=== PATIENT | male | born 1985 | race Hispanic/Latino ===

== ENCOUNTER 2016-09-30 22:01 | Emergency (ER) | payer OTHER ==
[~2016-09-30] VITALS: Ht 177.8 cm; Wt 77.3 kg
[2016-09-30 22:32] VITALS: BP 116/70; PULSE 104; RESP 16; O2SAT 93
--- NOTE | 2016-09-30 22:54 | ED.REPORT ---
HPI-Bite: Human/Animal Date of Service Sep 30, 2016 ED Provider: Montana Zaman MD A 31 year old male with no pertinent medical history is brought to the ED by police due to a dog bite and fit for long term. The pt was running from [place] when he was bitten in the right leg and calf by their dog. The pt states that he is experiencing throbbing pain in the area, but denies numbness or tingling. Nursing Notes Stated Complaint: FIT FOR DETENTION Chief Complaint: General Complaint Nursing Notes Reviewed: Yes ([employer], meds not reconciled) Allergies: Coded Allergies: No Known Allergies (Unverified , 09/30/16) General Time Seen by MD: 22:52 Chief Complaint Dog bite Hx Obtained From: Patient, Police Arrived By: Police Onset Occurred: 1 - 4 hours ago Symptom Duration: Since onset Recent Healthcare: No recent hospitalization, Recent doctor visit Similar Sx Previous: No Past Medical History Past Medical History none reported Past Surgical History none reported Smoking History Current Every Day Smoker Ambulatory Status Independent Review of Systems Review of Systems Note: denies numbness or tingling Skin: Denies Rash Complete sys rev & neg: except as marked. Respiratory: Denies: Non-productive cough, Shortness of breath Cardiovascular: Denies: Chest pain GI: Denies: Abdominal pain Musculoskeletal: Reports: Extremity pain (right leg) Physical Exam Vital Signs Vital Signs (First) Date Time Temp Pulse Resp B/P Pulse Ox O2 Delivery O2 Flow Rate FiO2 09/30/16 22:32 37.4 104 16 116/70 93 Room Air Initial VS: Reviewed, Vital signs normal (HR 104) General/Constitutional: Awake, Alert Skin: Color NL, Warm, Dry 5 cm laceration on right anterior [place] two 4 cm lacerations on right posterior calf abrasions on the elbows multiple small splinters in right hand Head / Eyes: Atraumatic, Normocephalic, PERRL, EOMI Respiratory / Chest: Atraumatic, Breath sounds NL, Breath sounds = bilat, No respiratory distress Cardiovascular: Heart rate NL, Regular rhythm, Heart sounds NL Abdomen: Atraumatic, Soft, Non-tender Upper Extremity / MS: Full range of motion, Neurologic intact, Vascular intact Lower Extremity / Pelvis / MS: Full range of motion, Neurologic intact, Vascular intact Neurologic: Oriented X3, Speech NL, No motor deficits, No sensory deficits ENT: Atraumatic, Airway patent, Mucous membranes moist Neck: Atraumatic, Supple, Full range of motion Back: Atraumatic, Full range of motion Psychiatric: Affect NL, Mood NL Interpretation & Diagnostics Interpretation & Diagnostics: Right Tibia/Fibula X-Ray: no acute findings Procedures Procedure Notes: foreign body removal: 23:08 ED physician time-out performed, hand hygeine observed, sterile stand technique, consent provided from patient multiple small splinters removed from right hand pt tolerated well, condition improved, no complications Laceration Management Time: 23:08 Procedure Performed by: ED physician Consent / Setup / Site Prep: Informed consent provided, Consent from patient , Time-out performed, Hand hygiene observed, Stand sterile technique Location of Wound: right anterior pen[place] Wound Length: 5 cm Local Anesthesia: Lidocaine w epi 1% Digital Block: No Wound Preparation: Normal saline, Other (Wound cleanser) Debridement: None Irrigation: Copious Foreign Body Explore / Removal: Explored for foreign body Repair Skin: ___ O (5), Nylon Suture Technique: Running Post-Procedure / Complications: Antibiotic oint applied, Dressing applied, No complications, Condition improved, Tolerated procedure well, Patient stable Time: 23:08 Procedure Performed by: ED physician Consent / Setup / Site Prep: Informed consent provided, Consent from patient , Time-out performed, Hand hygiene observed, Stand sterile technique Location of Wound: right posterior calf Wound Length: 4 cm Local Anesthesia: Lidocaine w epi 1% Digital Block: No Wound Preparation: Normal saline, Other (Wound cleanser) Debridement: None Irrigation: Copious Foreign Body Explore / Removal: Explored for foreign body Repair Skin: ___ O (5), Nylon Suture Technique: Running Post-Procedure / Complications: Antibiotic oint applied, Dressing applied, No complications, Condition improved, Tolerated procedure well, Patient stable Time: 23:08 Procedure Performed by: ED physician Consent / Setup / Site Prep: Informed consent provided, Consent from patient , Time-out performed, Hand hygiene observed, Stand sterile technique Location of Wound: right posterior calf Wound Length: 4 cm Local Anesthesia: Lidocaine w epi 1% Digital Block: No Wound Preparation: Normal saline, Other (Wound cleanser) Debridement: None Irrigation: Copious Foreign Body Explore / Removal: Explored for foreign body Repair Skin: ___ O (5), Nylon Suture Technique: Running Post-Procedure / Complications: Antibiotic oint applied, Dressing applied, No complications, Condition improved, Tolerated procedure well, Patient stable Re-Eval/Medical Decision Med Decision/Clinical Course This is a healthy 31-year-old male brought by police is a fit for long term with a dog bite to the right leg. Patient receives up-to-date in tetanus, denies any other injuries. Reports some abrasions to the elbows, and since blackberry bushes and has some small thorns splinters in the right hand. These were removed. His dog bite to the right leg is fairly substantial as he has a 5 cm laceration anterior pennington, 2 for similar lacerations to the calf. There is no evidence of tendon involvement. Plain radiographs are negative for fracture or retained foreign body, legs neurovascularly intact. Long enough that primary wound repair with is appropriate, though discussed with him that with a dog bite there is an increased risk of infection. Patient was started on empiric Augmentin. The wounds were anesthetized, then carefully irrigated with a total more than 3 L of saline with the on toxic soap additive. The wounds were then repaired with running 5-0 nylon. Bacitracin is applied. A number of small splinters were removed from very superficially from the skin of the palm, none were deep penetrations and did not require any anesthesia or appeared to penetrate the dermis. Wound care was discussed. Patient is discharged in stable condition. Old records Re-Evaluation/Progress : Time of Eval: 23:08 Re-Evaluation/Progress Note: Pt rechecked and laceration management is performed. The pt tolerated the procedure well and there were no complications. The diagnosis and plan for discharge are discussed. The pt understands and agrees with the plan. All questions are addressed at this time. Counseled Regarding: Diagnosis, Lab results, Need for follow-up, When/why to return to ED Discharge & Departure Impression: Primary Impression: Lacerations of multiple sites of right leg Encounter type: initial encounter Qualified Code: S81.811A - Laceration without foreign body, right lower leg, initial encounter Additional Impressions: Medical clearance for incarceration Dog bite of extremity Disposition: Home Discharge Condition All VS Reviewed: Yes Condition: Stable Additional Instructions: 1. Due to the large size of the dog bite lacerations, the wounds were closed with sutures. As discussed, there is a risk of infection and the wounds need to be rechecked on Monday and again next week. 2. Take the antibiotic Augmentin 875mhg twice a day for 10 days 3. Take ibuprofen 400-800mg three times a day as needed for soreness. 4. Return if you develop signs of infection: redness, fever, drainage and pain. 5. Sutures should be removed in ~12 days. (If needed you can return to the ED for removal.) Referrals: [facility] Scribe Attestation Portions of this note were transcribed by Jeronimo Greenberg. I, Dr. Zaman personally performed the history, physical exam and medical decision-making; I reviewed and confirmed the accuracy of the information in the transcribed note. Signed by: Angela Alves, 10/01/2016 and 0030. copies to: [facility] Montana Zaman MD Sep 30, 2016 22:53 JERONIMO GREENBERG Sep 30, 2016 23:04
[2016-09-30] MEDS ORDERED: Lidocaine 1%/Epi 1:100,000 30 mL MDV ONE (23:28)
[2016-10-01] MEDS ORDERED: Bacitracin Ointment Packet TOPICAL ONE (00:25)
[2016-10-01 00:41] VITALS: BP 122/74; PULSE 99; RESP 18; O2SAT 97
[2016-10-01] MEDS ORDERED: _Amoxicillin-Clavulanate 875-125 mg Tablet PO SCH (08:30)
--- NOTE | 2016-10-01 11:31 | DRSVH ---
PROCEDURE: X-RAY RIGHT TIBIA/FIBULA, TWO VIEWS ([id number]) INDICATIONS: DOG BITE MID TIB/FIB TECHNIQUE: 2 views of the tibia and fibula were acquired. COMPARISON: None. FINDINGS: Bones: No fractures or dislocations. No suspicious bony lesions. Soft tissues: No suspicious soft tissue calcifications or masses. Soft tissue defect and subcutaneo us air in the lateral aspect of the lower leg. No opaque foreign body. IMPRESSION: No fracture or dislocation. Soft tissue laceration. No foreign body. Dictated by: Akiko Shepard M.D. on 10/01/2016 at 11:28 Approved by: Akiko Shepard M.D. on 10/01/2016 at 11:29
== END 2016-10-01 00:44 | disposition home or self-care (01) ==
LOC: SED 22:01
DX: S81.851A Open bite, right lower leg, initial encounter (principal); S60.551A Superficial foreign body of right hand, initial encounter; W45.8XXA Other foreign body or object entering through skin, initial encounter; W54.0XXA Bitten by dog, initial encounter; Y93.02 Activity, running; Y99.8 Other external cause status; Y92.89 Other specified places as the place of occurrence of the external cause; F17.200 Nicotine dependence, unspecified, uncomplicated